=== PATIENT | female | born 1990 | race African-American/Black ===

== ENCOUNTER 2016-10-24 19:22 | Emergency (ER) | payer BC ==
[~2016-10-24] VITALS: Ht 165.1 cm; Wt 66.5 kg
[~2016-10-24 19:22] MED LIST: ADVAIR 250/501 DISK IH; ALBUTEROL SULF8.5 GM IH; ALBUTEROL2.5 MG/3 M IH; ALPRAZOLAM1 MG PO; AMLODIPINE BES2.5 MG PO; AMLODIPINE BESYL5 MG PO; AMOXICILLIN500 M1 PO; ASPIR-LOW81 MG PO; ASPIRIN325 MG PO; ATIVAN1 MG PO; AUGMENTIN500 MG PO; BENADRYL50 MG PO; BENLYSTA; CELLCEPT500 MG PO; CHERATUSSIN AC473 ML PO; CLONAZEPAM1 MG PO; COLCHICINE0.6 M1 PO; COLCRYS0.6 MG PO; CYMBALTA30 MG PO; CYMBALTA60 MG PO; DEPO-PROVER150 MG/ML IM; DESONIDE15 GM TP; DESOWEN60 GM TP; DICLOFENAC POTA50 MG PO; DILAUDID2 MG PO; EPIPEN ADU0.3 MG/0.3 IM; ERGOCALCIF50000 UNIT PO; FAMOTIDINE40 MG PO; FLEXERIL5 MG PO; FLUCONAZOLE50 MG PO; FOLIC ACID1 MG PO; HYDROCODON-ACE1 EAC7 PO; HYDROXYCHLOROQ200 MG PO; IBUPROFEN800 MG PO; LAMICTAL100 MG PO; LATUDA60 MG PO; LEXAPRO20 MG PO; LIDEX 0.05% CRE60 GM TP; LIORESAL10 MG PO; LITE COAT ASPI325 M1 PO; LORATADINE10 M2 PO; MEDROL16 MG PO; MEDROL8 MG PO; METHOTREXATE2.5 M1 PO; MITIGARE0.6 MG PO; MOTRIN400 MG PO; MOTRIN600 MG PO; MOTRIN800 MG PO; MUPIROCIN22 GM TP; MYCOPHENOLATE250 MG PO; MYCOPHENOLATE500 MG PO; NAPROSYN500 MG PO; NIFEDIPINE10 MG PO; NORCO 5/3251 TABLET PO; PANTOPRAZOLE SO40 MG PO; PERCOCET 5/31 TABLET PO; PLAQUENIL200 MG PO; PREDNISOLONE5 MG PO; PREDNISONE10 M1 PO; PREDNISONE10 MG PO; PREDNISONE2.5 MG PO; PREDNISONE20 MG PO; PREDNISONE5 MG PO; PRENATAL1 EACH PO; PROAIR HFA8.5 GM IH; PROTONIX40 MG PO; PROVENTIL HFA6.7 GM IH; Phenergan PO; QUETIAPINE FUMA50 MG PO; RANITIDINE HCL300 MG PO; ROXICET 5-3251 EACH PO; SEROQUEL100 MG PO; SPIRONOLACTONE50 MG PO; TESSALON PERLE100 MG PO; TESSALON200 MG PO; Tylenol W/ Codeine PO; ULTRAM50 MG PO; VENTOLIN HFA18 GM IH; VITAMIN D250000 UNIT PO; XANAX0.5 MG PO; XANAX1 MG PO; ZANTAC150 MG PO; hydrochloroquine PO
[2016-10-24 20:13] LABS: MCH 30.1 PG (29.0-34.0); MCHC 33.7 G/DL (30.0-36.0); MCV 89.4 FL (83-99); MEAN PLAT.VOLUME 9.4 uM^3 (9.5-12.4); PLATELET COUNT 245 K/uL (156-360); RBC DIS.WIDTH-CV 13.3 % (11.8-14.6); RBC DIS.WIDTH-SD 42.6 % (39-53); RED BLOOD COUNT 4.81 M/uL (3.80-5.20); WHITE BLOOD COUNT 9.7 K/uL (4.1-10.2)
[2016-10-24 20:24] LABS: CHLORIDE 106 mEq/L (99-109); POTASSIUM 3.8 mEq/L (3.7-5.4); SODIUM 139 mEq/L (136-147)
[2016-10-24 20:26] LABS: GLUCOSE 53 mg/dL (70-99)
[2016-10-24 20:27] LABS: ANION GAP 9 MEQ/L (2-14)
[2016-10-24 20:30] LABS: GFR ESTIMATE (CALCULATED) > 59 mL/min/; UREA NITROGEN (BUN) 8 mg/dL (9-23)
[2016-10-24 20:34] LABS: TROP-I INTERPRETATION NEGATIVE; TROPONIN-I < 0.01 ng/mL (0.0-0.30)
[2016-10-25 02:15] LABS: TROP-I INTERPRETATION NEGATIVE; TROPONIN-I < 0.01 ng/mL (0.0-0.30)
[2016-10-25] MEDS ORDERED: PERCOCET 5/31 TABLET PO (03:46)
[2016-10-25] MEDS ORDERED: MEDROL DOSEPAK4 MG PO (03:46)
[2016-10-25 03:57] VITALS: BP 129/87
== END 2016-10-25 04:03 | disposition home or self-care (01) ==
LOC: EME 19:22
DX: S29.001A Unspecified injury of muscle and tendon of front wall of thorax, initial encounter (principal); L93.0 Discoid lupus erythematosus; F17.200 Nicotine dependence, unspecified, uncomplicated; J45.909 Unspecified asthma, uncomplicated; K21.9 Gastro-esophageal reflux disease without esophagitis; G89.29 Other chronic pain; Z88.7 Allergy status to serum and vaccine; Z88.1 Allergy status to other antibiotic agents; Z88.5 Allergy status to narcotic agent
CPT/HCPCS: 71020; 80048; 84484; 85027; 93005; 99281; 99284; J1100; J1170; J1885; J2405

== ENCOUNTER 2017-02-12 09:53 | Emergency (ER) | payer SELFPAY ==
[~2017-02-12] VITALS: Ht 165.1 cm; Wt 63.5 kg
[~2017-02-12 09:53] MED LIST changes: +MEDROL DOSEPAK4 MG PO
[2017-02-12 11:26] LABS: EOSINOPHIL (%) 0.8 % (0-5); EOSINOPHIL COUNT 0.1 K/uL (0-0.3); HEMATOCRIT 42.2 % (36.0-46.0); IMMATURE GRANULOCYTE (%) 0.4 % (0.0-0.7); INSTRUMENT ABS NEUTROPHIL CT 9.4 K/uL; LYMPHOCYTE COUNT 0.9 K/uL (1.0-2.8); MCH 30.6 PG (29.0-34.0); MCHC 32.9 G/DL (30.0-36.0); MEAN PLAT.VOLUME 9.3 uM^3 (9.5-12.4); MONOCYTE (%) 3.8 % (3-12); MONOCYTE COUNT 0.4 K/uL (0-0.8); NEUTROPHIL (%) 86.4 % (45-76); NEUTROPHIL COUNT 9.4 K/uL (1.8-6.4); PLATELET COUNT 234 K/uL (156-360); RBC DIS.WIDTH-CV 12.2 % (11.8-14.6); RBC DIS.WIDTH-SD 41.8 % (39-53); RED BLOOD COUNT 4.54 M/uL (3.80-5.20); WHITE BLOOD COUNT 10.9 K/uL (4.1-10.2)
[2017-02-12 11:34] LABS: CHLORIDE 106 mEq/L (99-109); POTASSIUM 3.5 mEq/L (3.7-5.4); SODIUM 138 mEq/L (136-147)
[2017-02-12 11:36] LABS: GLUCOSE 84 mg/dL (70-99)
[2017-02-12 11:38] LABS: ANION GAP 7 MEQ/L (2-14)
[2017-02-12 11:40] LABS: GFR ESTIMATE (CALCULATED) > 59 mL/min/
[2017-02-12 11:41] LABS: UREA NITROGEN (BUN) 9 mg/dL (9-23)
[2017-02-12 11:49] LABS: QUANTITATIVE HCG < 4.0 MIU/ML
[2017-02-12 12:27] LABS: ADD MIUA? NO; BILIRUBIN NEGATIVE; BLOOD NEGATIVE; COLOR YELLOW ((YELLOW)); GLUCOSE (STRIP) NEGATIVE; KETONES NEGATIVE; LEUKOCYTES NEGATIVE; NITRITE NEGATIVE; PROTEIN (STRIP) NEGATIVE; SPECIFIC GRAVITY 1.013 (1.000-1.030)
[2017-02-12] MEDS ORDERED: PERCOCET 5/31 TABLET PO (13:17)
[2017-02-12 13:37] VITALS: BP 117/73
== END 2017-02-12 13:41 | disposition home or self-care (01) ==
LOC: EME 09:53
PROVIDERS: Emergency Medicine
DX: R10.2 Pelvic and perineal pain (principal); R07.2 Precordial pain; N93.9 Abnormal uterine and vaginal bleeding, unspecified; N83.202 Unspecified ovarian cyst, left side; F17.200 Nicotine dependence, unspecified, uncomplicated; J45.909 Unspecified asthma, uncomplicated; F31.9 Bipolar disorder, unspecified; G89.29 Other chronic pain; J44.9 Chronic obstructive pulmonary disease, unspecified; G43.909 Migraine, unspecified, not intractable, without status migrainosus; K21.9 Gastro-esophageal reflux disease without esophagitis; M79.7 Fibromyalgia
CPT/HCPCS: 76856; 80048; 81003; 84702; 85025; 99281; 99284

== ENCOUNTER 2017-04-04 11:44 | Emergency (ER) | payer SELFPAY ==
[~2017-04-04] VITALS: Ht 165.1 cm; Wt 64.1 kg
[2017-04-04 11:54] VITALS: BP 134/87
[2017-04-04 12:44] LABS: HEMATOCRIT 44.2 % (36.0-46.0); MCH 30.6 PG (29.0-34.0); MCV 92.7 FL (83-99); MEAN PLAT.VOLUME 9.7 uM^3 (9.5-12.4); PLATELET COUNT 228 K/uL (156-360); RED BLOOD COUNT 4.77 M/uL (3.80-5.20); WHITE BLOOD COUNT 5.1 K/uL (4.1-10.2)
[2017-04-04 12:58] LABS: CHLORIDE 103 mEq/L (99-109); SODIUM 138 mEq/L (136-147)
[2017-04-04 13:00] LABS: GLUCOSE 88 mg/dL (70-99)
[2017-04-04 13:01] LABS: ANION GAP 7 MEQ/L (2-14)
[2017-04-04 13:02] LABS: TOTAL BILIRUBIN 0.9 mg/dL (0.0-1.0)
[2017-04-04 13:04] LABS: ALKALINE PHOSPHATASE 49 IU/L (3-129); GFR ESTIMATE (CALCULATED) > 59 mL/min/
[2017-04-04 13:05] LABS: UREA NITROGEN (BUN) 13 mg/dL (9-23)
[2017-04-04 13:07] LABS: LIPASE 7 U/L (1.0-51.0)
[2017-04-04 13:16] LABS: QUANTITATIVE HCG < 4.0 MIU/ML
[2017-04-04 14:06] LABS: ADD MIUA? YES; BILIRUBIN NEGATIVE; BLOOD NEGATIVE; COLOR YELLOW ((YELLOW)); GLUCOSE (STRIP) NEGATIVE; KETONES NEGATIVE; LEUKOCYTES SMALL; NITRITE NEGATIVE; PROTEIN (STRIP) NEGATIVE; SPECIFIC GRAVITY 1.016 (1.000-1.030); UROBILINOGEN 0.2 MG/DL (0.2-1.0)
[2017-04-04 14:16] LABS: BACTERIA NONE SEEN /HPF; EPITHELIAL CELLS RARE /HPF; MUCUS NONE SEEN /LPF; RED BLOOD CELLS 0-5 /HPF (0-5); UCUL ADDED? NO; WHITE BLOOD CELLS 0-5 /HPF (0-5)
== END 2017-04-04 16:31 | disposition left against medical advice (07) ==
LOC: EME 11:44
DX: N83.201 Unspecified ovarian cyst, right side (principal); J44.9 Chronic obstructive pulmonary disease, unspecified; M79.7 Fibromyalgia; K21.9 Gastro-esophageal reflux disease without esophagitis; Z97.5 Presence of (intrauterine) contraceptive device; F17.200 Nicotine dependence, unspecified, uncomplicated; Z88.7 Allergy status to serum and vaccine; Z88.1 Allergy status to other antibiotic agents
CPT/HCPCS: 76856; 80053; 81003; 83690; 84702; 85027; 99281; 99284

== ENCOUNTER 2017-04-27 17:59 | Emergency (ER) | payer SELFPAY ==
[~2017-04-27] VITALS: Ht 165.1 cm; Wt 67.0 kg
[2017-04-27 18:44] LABS: HEMATOCRIT 38.7 % (36.0-46.0); MCH 30.9 PG (29.0-34.0); MCHC 33.6 G/DL (30.0-36.0); MCV 91.9 FL (83-99); MEAN PLAT.VOLUME 9.2 uM^3 (9.5-12.4); PLATELET COUNT 221 K/uL (156-360); RBC DIS.WIDTH-CV 12.2 % (11.8-14.6); RBC DIS.WIDTH-SD 40.9 % (39-53); RED BLOOD COUNT 4.21 M/uL (3.80-5.20); WHITE BLOOD COUNT 6.8 K/uL (4.1-10.2)
[2017-04-27 18:55] LABS: CHLORIDE 104 mEq/L (99-109); POTASSIUM 3.8 mEq/L (3.7-5.4); SODIUM 139 mEq/L (136-147)
[2017-04-27 18:56] LABS: GLUCOSE 89 mg/dL (70-99)
[2017-04-27 18:58] LABS: ANION GAP 13 MEQ/L (2-14)
[2017-04-27 19:00] LABS: GFR ESTIMATE (CALCULATED) > 59 mL/min/
[2017-04-27 19:01] LABS: UREA NITROGEN (BUN) 8 mg/dL (9-23)
[2017-04-27 19:07] LABS: TROP-I INTERPRETATION NEGATIVE; TROPONIN-I < 0.01 ng/mL (0.0-0.30)
[2017-04-27] MEDS ORDERED: PREDNISONE20 MG PO (21:58)
[2017-04-27] MEDS ORDERED: VENTOLIN HFA18 GM IH (21:58)
[2017-04-27] MEDS ORDERED: AMOXICILLIN500 M1 PO (21:58)
[2017-04-27 23:04] VITALS: BP 137/89
== END 2017-04-27 23:17 | disposition home or self-care (01) ==
LOC: EME 17:59
PROVIDERS: Nurse Practitioner Family
DX: J44.9 Chronic obstructive pulmonary disease, unspecified (principal); R07.9 Chest pain, unspecified; M32.9 Systemic lupus erythematosus, unspecified; F32.9 Major depressive disorder, single episode, unspecified; F41.9 Anxiety disorder, unspecified; K21.9 Gastro-esophageal reflux disease without esophagitis; Z88.7 Allergy status to serum and vaccine; Z88.1 Allergy status to other antibiotic agents; F17.200 Nicotine dependence, unspecified, uncomplicated
CPT/HCPCS: 71020; 71275; 80048; 84484; 85027; 85379; 93005; 99281; 99285; J3010; J7030; J7512

== ENCOUNTER 2017-07-01 10:22 | Emergency (ER) | payer OTHER ==
[~2017-07-01] VITALS: Ht 165.1 cm; Wt 68.2 kg
[2017-07-01 11:54] LABS: ADD MIUA? NO; BILIRUBIN NEGATIVE; BLOOD NEGATIVE; COLOR YELLOW ((YELLOW)); GLUCOSE (STRIP) NEGATIVE; KETONES NEGATIVE; LEUKOCYTES NEGATIVE; NITRITE NEGATIVE; PROTEIN (STRIP) NEGATIVE; SPECIFIC GRAVITY 1.012 (1.000-1.030); UROBILINOGEN 0.2 MG/DL (0.2-1.0)
[2017-07-01 12:11] LABS: HEMATOCRIT 37.3 % (36.0-46.0); MCHC 32.7 G/DL (30.0-36.0); MCV 91.9 FL (83-99); MEAN PLAT.VOLUME 9.4 uM^3 (9.5-12.4); PLATELET COUNT 229 K/uL (156-360); RBC DIS.WIDTH-CV 12.2 % (11.8-14.6); RBC DIS.WIDTH-SD 41.4 % (39-53); RED BLOOD COUNT 4.06 M/uL (3.80-5.20); WHITE BLOOD COUNT 6.2 K/uL (4.1-10.2)
[2017-07-01 12:25] LABS: CHLORIDE 107 mEq/L (99-109); POTASSIUM 3.5 mEq/L (3.7-5.4); SODIUM 139 mEq/L (136-147)
[2017-07-01 12:28] LABS: GLUCOSE 76 mg/dL (70-99)
[2017-07-01 12:29] LABS: ANION GAP 6 MEQ/L (2-14); TOTAL BILIRUBIN 0.5 mg/dL (0.0-1.0)
[2017-07-01 12:31] LABS: ALKALINE PHOSPHATASE 40 IU/L (3-129); GFR ESTIMATE (CALCULATED) > 59 mL/min/
[2017-07-01 12:32] LABS: UREA NITROGEN (BUN) 8 mg/dL (9-23)
[2017-07-01 12:41] LABS: QUANTITATIVE HCG < 4.0 MIU/ML
[2017-07-01 12:50] LABS: UCUL ADDED? NO
[2017-07-01 13:04] LABS: ERTH.SED.RATE 16 MM/HR (0-20)
[2017-07-01 13:25] LABS: C-REACTIVE PROTEIN 19.1 MG/L (0-10); SAMPLE HEMOLYSIS CHECK 0; SAMPLE ICTERIC CHECK 0; SAMPLE LIPEMIA CHECK 0
[2017-07-01] MEDS ORDERED: MILLIPRED5 MG PO (13:47)
[2017-07-01] MEDS ORDERED: ATARAX,VISTARIL50 MG PO (13:58)
[2017-07-01] MEDS ORDERED: LIDODERM 5% P1 PATCH TD (13:58)
[2017-07-01] MEDS ORDERED: FLEXERIL10 MG PO (13:58)
[2017-07-01 14:27] VITALS: BP 117/65
== END 2017-07-01 14:28 | disposition home or self-care (01) ==
LOC: EME 10:22
PROVIDERS: Nurse Practitioner Family
DX: M25.511 Pain in right shoulder (principal); M25.512 Pain in left shoulder; M62.838 Other muscle spasm; M32.9 Systemic lupus erythematosus, unspecified; R79.82 Elevated C-reactive protein (CRP); M79.7 Fibromyalgia; K21.9 Gastro-esophageal reflux disease without esophagitis; J44.9 Chronic obstructive pulmonary disease, unspecified; F17.200 Nicotine dependence, unspecified, uncomplicated
CPT/HCPCS: 72070; 80053; 81003; 84702; 85027; 85651; 86140; 99281; 99284; J7512; Q0177

== ENCOUNTER 2017-07-20 14:52 | Emergency (ER) | payer SELFPAY ==
[~2017-07-20] VITALS: Ht 165.1 cm; Wt 65.1 kg
[~2017-07-20 14:52] MED LIST changes: +ATARAX,VISTARIL50 MG PO; +FLEXERIL10 MG PO; +LIDODERM 5% P1 PATCH TD; +MILLIPRED5 MG PO
[2017-07-20 15:18] LABS: HEMATOCRIT 40.7 % (36.0-46.0); MCHC 32.9 G/DL (30.0-36.0); MCV 91.3 FL (83-99); MEAN PLAT.VOLUME 8.7 uM^3 (9.5-12.4); PLATELET COUNT 270 K/uL (156-360); RBC DIS.WIDTH-SD 40.6 % (39-53); RED BLOOD COUNT 4.46 M/uL (3.80-5.20); WHITE BLOOD COUNT 6.7 K/uL (4.1-10.2)
[2017-07-20 15:29] LABS: CHLORIDE 102 mEq/L (99-109); POTASSIUM 3.5 mEq/L (3.7-5.4); SODIUM 136 mEq/L (136-147)
[2017-07-20 15:30] LABS: GLUCOSE 83 mg/dL (70-99)
[2017-07-20 15:32] LABS: ANION GAP 8 MEQ/L (2-14)
[2017-07-20 15:34] LABS: GFR ESTIMATE (CALCULATED) > 59 mL/min/
[2017-07-20 15:35] LABS: UREA NITROGEN (BUN) 9 mg/dL (9-23)
[2017-07-20 15:39] LABS: TROP-I INTERPRETATION NEGATIVE; TROPONIN-I < 0.01 ng/mL (0.0-0.30)
[2017-07-20 16:18] LABS: TOTAL BILIRUBIN 0.7 mg/dL (0.0-1.0)
[2017-07-20 16:19] LABS: ALKALINE PHOSPHATASE 57 IU/L (3-129)
[2017-07-20 16:22] LABS: DIRECT BILIRUBIN 0.3 mg/dL (0.0-0.3)
[2017-07-20 16:23] LABS: LIPASE 9 U/L (1.0-51.0)
[2017-07-20 16:30] LABS: QUANTITATIVE HCG < 4.0 MIU/ML
[2017-07-20 17:44] LABS: ADD MIUA? YES; BILIRUBIN NEGATIVE; BLOOD NEGATIVE; COLOR YELLOW ((YELLOW)); GLUCOSE (STRIP) NEGATIVE; KETONES NEGATIVE; LEUKOCYTES NEGATIVE; NITRITE NEGATIVE; PROTEIN (STRIP) NEGATIVE; SPECIFIC GRAVITY 1.018 (1.000-1.030)
[2017-07-20 17:47] LABS: BACTERIA NONE SEEN /HPF; CALCIUM OXALATE CRYSTALS 1+ /HPF; EPITHELIAL CELLS 1+ /HPF; MUCUS 1+ /LPF; RED BLOOD CELLS 0-5 /HPF (0-5); UCUL ADDED? NO; WHITE BLOOD CELLS 0-5 /HPF (0-5)
[2017-07-20] MEDS ORDERED: ZOFRAN4 MG PO (18:34)
[2017-07-20] MEDS ORDERED: BENTYL10 MG PO (18:34)
[2017-07-20 18:45] VITALS: BP 122/73
== END 2017-07-20 18:47 | disposition home or self-care (01) ==
LOC: EME 14:52
PROVIDERS: Physician Assistant
DX: R10.12 Left upper quadrant pain (principal); J44.9 Chronic obstructive pulmonary disease, unspecified; M32.9 Systemic lupus erythematosus, unspecified; K21.9 Gastro-esophageal reflux disease without esophagitis; F32.9 Major depressive disorder, single episode, unspecified; M79.7 Fibromyalgia; Z97.5 Presence of (intrauterine) contraceptive device; F41.9 Anxiety disorder, unspecified; F17.200 Nicotine dependence, unspecified, uncomplicated
CPT/HCPCS: 71020; 74020; 80048; 80076; 81003; 83690; 84484; 84702; 85027; 93005; 99281; 99283; J1885

== ENCOUNTER 2017-08-18 09:47 | Emergency (ER) | payer SELFPAY ==
[~2017-08-18] VITALS: Ht 165.1 cm; Wt 64.7 kg
[~2017-08-18 09:47] MED LIST changes: +BENTYL10 MG PO; +ZOFRAN4 MG PO
[2017-08-18 10:15] LABS: HEMATOCRIT 40.5 % (36.0-46.0); MCH 29.9 PG (29.0-34.0); MCHC 32.8 G/DL (30.0-36.0); PLATELET COUNT 291 K/uL (156-360); RBC DIS.WIDTH-CV 12.5 % (11.8-14.6); RBC DIS.WIDTH-SD 41.3 % (39-53); RED BLOOD COUNT 4.45 M/uL (3.80-5.20); WHITE BLOOD COUNT 6.8 K/uL (4.1-10.2)
[2017-08-18 10:33] LABS: CHLORIDE 103 mEq/L (99-109); POTASSIUM 3.5 mEq/L (3.7-5.4); SODIUM 137 mEq/L (136-147)
[2017-08-18 10:35] LABS: GLUCOSE 100 mg/dL (70-99)
[2017-08-18 10:37] LABS: ANION GAP 8 MEQ/L (2-14)
[2017-08-18 10:39] LABS: GFR ESTIMATE (CALCULATED) > 59 mL/min/; TROP-I INTERPRETATION NEGATIVE; TROPONIN-I < 0.01 ng/mL (0.0-0.30)
[2017-08-18 10:40] LABS: UREA NITROGEN (BUN) 7 mg/dL (9-23)
[2017-08-18 13:47] LABS: TROP-I INTERPRETATION NEGATIVE; TROPONIN-I < 0.01 ng/mL (0.0-0.30)
[2017-08-18] MEDS ORDERED: ULTRAM50 MG PO (14:05)
[2017-08-18 14:22] VITALS: BP 124/69
== END 2017-08-18 14:23 | disposition home or self-care (01) ==
LOC: EME 09:47
PROVIDERS: Emergency Medicine
DX: R07.89 Other chest pain (principal); R06.02 Shortness of breath; F17.210 Nicotine dependence, cigarettes, uncomplicated; J44.9 Chronic obstructive pulmonary disease, unspecified; M32.9 Systemic lupus erythematosus, unspecified; M79.7 Fibromyalgia; F32.9 Major depressive disorder, single episode, unspecified; F41.9 Anxiety disorder, unspecified; K21.9 Gastro-esophageal reflux disease without esophagitis; Z88.7 Allergy status to serum and vaccine; Z88.1 Allergy status to other antibiotic agents
CPT/HCPCS: 71020; 71275; 80048; 84484; 85027; 85379; 93005; 99281; 99284; J1885; J2270

== ENCOUNTER 2017-09-18 09:19 | Emergency (ER) | payer SELFPAY ==
[~2017-09-18] VITALS: Ht 165.1 cm; Wt 65.3 kg
[2017-09-18] MEDS ORDERED: DIFLUCAN150 MG PO (12:23)
[2017-09-18] MEDS ORDERED: AZITHROMYCIN250 MG PO (12:23)
[2017-09-18] MEDS ORDERED: PREDNISONE50 MG PO (12:23)
[2017-09-18 12:40] VITALS: BP 111/69
== END 2017-09-18 12:44 | disposition home or self-care (01) ==
LOC: EME 09:19
DX: J20.9 Acute bronchitis, unspecified (principal); M32.9 Systemic lupus erythematosus, unspecified; T50.996A Underdosing of other drugs, medicaments and biological substances, initial encounter; Z91.120 Patient's intentional underdosing of medication regimen due to financial hardship; J44.0 Chronic obstructive pulmonary disease with (acute) lower respiratory infection; F17.200 Nicotine dependence, unspecified, uncomplicated; F32.9 Major depressive disorder, single episode, unspecified; K21.9 Gastro-esophageal reflux disease without esophagitis; F41.9 Anxiety disorder, unspecified; M79.7 Fibromyalgia; Z88.5 Allergy status to narcotic agent; Z88.1 Allergy status to other antibiotic agents
CPT/HCPCS: 71020; 93005; 99281; 99284

== ENCOUNTER 2017-09-26 08:36 | Emergency (ER) | payer SELFPAY ==
[~2017-09-26] VITALS: Ht 165.1 cm; Wt 64.0 kg
[~2017-09-26 08:36] MED LIST changes: +AZITHROMYCIN250 MG PO; +DIFLUCAN150 MG PO; +PREDNISONE50 MG PO
[2017-09-26 10:06] LABS: HEMATOCRIT 40.3 % (36.0-46.0); MCHC 33.5 G/DL (30.0-36.0); MCV 89.6 FL (83-99); MEAN PLAT.VOLUME 8.9 uM^3 (9.5-12.4); PLATELET COUNT 325 K/uL (156-360); WHITE BLOOD COUNT 8.7 K/uL (4.1-10.2)
[2017-09-26 10:15] LABS: CHLORIDE 105 mEq/L (99-109); POTASSIUM 3.2 mEq/L (3.7-5.4); SODIUM 140 mEq/L (136-147)
[2017-09-26 10:17] LABS: GLUCOSE 90 mg/dL (70-99)
[2017-09-26 10:18] LABS: ANION GAP 10 MEQ/L (2-14)
[2017-09-26 10:20] LABS: GFR ESTIMATE (CALCULATED) > 59 mL/min/
[2017-09-26 10:21] LABS: UREA NITROGEN (BUN) 9 mg/dL (9-23)
[2017-09-26 10:29] LABS: QUANTITATIVE HCG < 4.0 MIU/ML
[2017-09-26] MEDS ORDERED: ALBUTEROL2.5 MG/3 M IH (12:18)
[2017-09-26] MEDS ORDERED: VENTOLIN HFA18 GM IH (12:18)
[2017-09-26] MEDS ORDERED: LEVAQUIN750 MG PO (12:18)
[2017-09-26] MEDS ORDERED: PREDNISONE20 MG PO (12:18)
[2017-09-26 12:30] VITALS: BP 129/81
== END 2017-09-26 13:13 | disposition home or self-care (01) ==
LOC: RME 08:36 → EME 08:36 → RME 13:13
PROVIDERS: Emergency Medicine
DX: J44.1 Chronic obstructive pulmonary disease with (acute) exacerbation (principal); J20.9 Acute bronchitis, unspecified; J44.0 Chronic obstructive pulmonary disease with (acute) lower respiratory infection; F17.200 Nicotine dependence, unspecified, uncomplicated; Z88.8 Allergy status to other drugs, medicaments and biological substances; F31.9 Bipolar disorder, unspecified; I73.00 Raynaud's syndrome without gangrene; M32.9 Systemic lupus erythematosus, unspecified
CPT/HCPCS: 71020; 71275; 80048; 84702; 85027; 85379; 99281; 99284; J7030

== ENCOUNTER 2017-10-26 09:22 | Emergency (ER) | payer OTHER ==
[~2017-10-26] VITALS: Ht 165.1 cm; Wt 57.0 kg
[~2017-10-26 09:22] MED LIST changes: +LEVAQUIN750 MG PO
[2017-10-26 10:34] LABS: TROP-I INTERPRETATION NEGATIVE; TROPONIN-I < 0.01 ng/mL (0.0-0.30)
[2017-10-26 11:52] VITALS: BP 116/78
== END 2017-10-26 11:52 | disposition home or self-care (01) ==
LOC: EME 09:22
PROVIDERS: Emergency Medicine
DX: R07.89 Other chest pain (principal); J44.9 Chronic obstructive pulmonary disease, unspecified; F32.9 Major depressive disorder, single episode, unspecified; M79.7 Fibromyalgia; G43.909 Migraine, unspecified, not intractable, without status migrainosus; K21.9 Gastro-esophageal reflux disease without esophagitis; F41.9 Anxiety disorder, unspecified; F17.200 Nicotine dependence, unspecified, uncomplicated; Z88.5 Allergy status to narcotic agent; Z88.0 Allergy status to penicillin
CPT/HCPCS: 71046; 84484; 93005

== ENCOUNTER 2017-11-15 11:07 | Emergency (ER) | payer OTHER ==
[~2017-11-15] VITALS: Ht 165.1 cm; Wt 62.7 kg
[2017-11-15 13:08] LABS: HEMATOCRIT 39.3 % (36.0-46.0); HEMOGLOBIN 13.1 G/DL (11.9-15.5); MCH 30.4 PG (29.0-34.0); MCHC 33.3 G/DL (30.0-36.0); MCV 91.2 FL (83-99); PLATELET COUNT 258 K/uL (156-360); RBC DIS.WIDTH-CV 13.5 % (11.8-14.6); RBC DIS.WIDTH-SD 45.6 % (39-53); RED BLOOD COUNT 4.31 M/uL (3.80-5.20); WHITE BLOOD COUNT 11.2 K/uL (4.1-10.2)
[2017-11-15 13:14] LABS: APPEARANCE CLEAR ((CLEAR)); BILIRUBIN NEGATIVE; BLOOD NEGATIVE; COLOR YELLOW ((YELLOW)); GLUCOSE (STRIP) NEGATIVE; KETONES NEGATIVE; LEUKOCYTES NEGATIVE; NITRITE NEGATIVE; PROTEIN (STRIP) NEGATIVE; UCUL ADDED? NO; UROBILINOGEN 0.2 MG/DL (0.2-1.0)
[2017-11-15 13:18] LABS: ALBUMIN 3.6 g/dL (3.2-4.8); CHLORIDE 103 mEq/L (99-109); POTASSIUM 3.8 mEq/L (3.7-5.4); SODIUM 139 mEq/L (136-147)
[2017-11-15 13:20] LABS: GLUCOSE 87 mg/dL (70-99); TOTAL PROTEIN 6.9 g/dL (6.4-8.3)
[2017-11-15 13:22] LABS: TOTAL BILIRUBIN 0.8 mg/dL (0.0-1.0)
[2017-11-15 13:24] LABS: ALKALINE PHOSPHATASE 50 IU/L (3-129); CREATININE 0.8 mg/dL (0.6-1.3); GFR ESTIMATE (CALCULATED) > 59 mL/min/
[2017-11-15 13:25] LABS: UREA NITROGEN (BUN) 11 mg/dL (9-23)
[2017-11-15 13:26] LABS: AST (GOT) 15 IU/L (2-34)
[2017-11-15 13:27] LABS: ALT (GPT) 11 IU/L (3-49)
[2017-11-15 13:33] LABS: QUANTITATIVE HCG < 4.0 MIU/ML
[2017-11-15 14:36] VITALS: BP 107/66
== END 2017-11-15 14:38 | disposition home or self-care (01) ==
LOC: EME 11:07
PROVIDERS: Nurse Practitioner Family
DX: R10.12 Left upper quadrant pain (principal); K59.00 Constipation, unspecified; M54.9 Dorsalgia, unspecified; R11.0 Nausea; Z97.5 Presence of (intrauterine) contraceptive device; F17.200 Nicotine dependence, unspecified, uncomplicated
CPT/HCPCS: 71046; 74018; 80053; 81003; 84702; 85027; 93005; 99281; 99284; J1885

== ENCOUNTER 2018-05-15 14:51 | Emergency (ER) | payer OTHER ==
[~2018-05-15] VITALS: Ht 165.1 cm; Wt 61.7 kg
[2018-05-15 16:33] LABS: BASOPHIL (%) 0.2 % (0-1); EOSINOPHIL (%) 0.2 % (0-5); HEMATOCRIT 38.2 % (36.0-46.0); HEMOGLOBIN 13.3 G/DL (11.9-15.5); IMMATURE GRANULOCYTE (%) 0.5 % (0.0-0.7); LYMPHOCYTE (%) 6.4 % (15-42); LYMPHOCYTE COUNT 0.6 K/uL (1.0-2.8); MCH 31.6 PG (29.0-34.0); MCHC 34.8 G/DL (30.0-36.0); MCV 90.7 FL (83-99); MONOCYTE (%) 4.2 % (3-12); MONOCYTE COUNT 0.4 K/uL (0-0.8); NEUTROPHIL (%) 88.5 % (45-76); NEUTROPHIL COUNT 8.9 K/uL (1.8-6.4); PLATELET COUNT 228 K/uL (156-360); RBC DIS.WIDTH-CV 12.7 % (11.8-14.6); RBC DIS.WIDTH-SD 42.2 % (39-53); RED BLOOD COUNT 4.21 M/uL (3.80-5.20); WHITE BLOOD COUNT 10.1 K/uL (4.1-10.2)
[2018-05-15 16:41] LABS: CHLORIDE 103 mEq/L (99-109); POTASSIUM 3.9 mEq/L (3.7-5.4); SODIUM 134 mEq/L (136-147)
[2018-05-15 16:42] LABS: GLUCOSE 85 mg/dL (70-99)
[2018-05-15 16:46] LABS: CREATININE 0.7 mg/dL (0.6-1.3); GFR ESTIMATE (CALCULATED) > 59 mL/min/
[2018-05-15 16:47] LABS: UREA NITROGEN (BUN) 8 mg/dL (9-23)
[2018-05-15 17:45] LABS: APPEARANCE CLEAR ((CLEAR)); BILIRUBIN NEGATIVE; BLOOD NEGATIVE; COLOR STRAW ((YELLOW)); GLUCOSE (STRIP) NEGATIVE; KETONES NEGATIVE; LEUKOCYTES NEGATIVE; NITRITE NEGATIVE; PROTEIN (STRIP) NEGATIVE; SPECIFIC GRAVITY 1.009 (1.000-1.030); UCUL ADDED? NO; UROBILINOGEN 0.2 MG/DL (0.2-1.0)
[2018-05-15 18:10] VITALS: BP 108/76
== END 2018-05-15 18:14 | disposition home or self-care (01) ==
LOC: EME 14:51
PROVIDERS: Emergency Medicine
DX: O26.892 Other specified pregnancy related conditions, second trimester (principal); R42 Dizziness and giddiness; O21.9 Vomiting of pregnancy, unspecified; R51 Headache; Z3A.14 14 weeks gestation of pregnancy; O99.512 Diseases of the respiratory system complicating pregnancy, second trimester; J44.9 Chronic obstructive pulmonary disease, unspecified; O99.612 Diseases of the digestive system complicating pregnancy, second trimester; K21.9 Gastro-esophageal reflux disease without esophagitis; O99.342 Other mental disorders complicating pregnancy, second trimester; F41.9 Anxiety disorder, unspecified; F31.9 Bipolar disorder, unspecified; F32.9 Major depressive disorder, single episode, unspecified; M79.7 Fibromyalgia; M32.9 Systemic lupus erythematosus, unspecified; O99.332 Smoking (tobacco) complicating pregnancy, second trimester; F17.200 Nicotine dependence, unspecified, uncomplicated; Z88.7 Allergy status to serum and vaccine; Z88.5 Allergy status to narcotic agent; Z88.1 Allergy status to other antibiotic agents
CPT/HCPCS: 80048; 81003; 85025; 93005; 99281; 99285